=== PATIENT | female | born 1975 | race Caucasian/White ===

== ENCOUNTER 2017-01-29 07:13 | Inpatient (IN) | payer OTHER ==
[2017-01-29] VITALS (7 sets, daily range): BP systolic 101–124; BP diastolic 55–77; PULSE 70–90; RESP 16–18; TEMP 96.4–98.2; O2SAT 97–99
[~2017-01-29] VITALS: Ht 170.2 cm; Wt 98.9 kg
[2017-01-29] MEDS ORDERED: HYDROmorphone HCL PF 1 MG/ML VIAL IV PUSH ONE ×2 (07:45→09:45)
[2017-01-29] MEDS ORDERED: ONDANSETRON HCL 4 MG/2 ML VIAL IV PUSH ONE ×2 (07:45→12:00)
[2017-01-29 08:08] LABS: AUTOMATED NEUTROPHIL # 4.2 TH/MM3 (1.8-7.7); BASOPHIL % 0.4 % (0.0-2.0); EOSINOPHIL # 0.1 TH/MM3 (0-0.4); EOSINOPHIL % 1.1 % (0.0-4.0); HEMATOCRIT 37.9 % (35.0-46.0); HEMO FLAGS DIFF FINAL; LYMPH % 21.2 % (9.0-44.0); LYMPHOCYTE # 1.3 TH/MM3 (1.0-4.8); MEAN CELL VOLUME 87.5 FL (80.0-100.0); MEAN CORPUSCULAR HEMOGLOBIN 28.8 PG (27.0-34.0); MEAN CORPUSCULAR HGB CONC 32.9 % (32.0-36.0); MONO % 9.2 % (0.0-8.0); NEUT % 68.1 % (16.0-70.0); PLATELET COUNT 180 TH/MM3 (150-450); RED BLOOD COUNT 4.33 MIL/MM3 (4.00-5.30); RED CELL DISTRIBUTION WIDTH 15.2 % (11.6-17.2); WHITE BLOOD COUNT 6.2 TH/MM3 (4.0-11.0)
[2017-01-29 08:12] LABS: APTT (PATIENT) 23.9 SEC (24.3-30.1); INTERNATIONAL NORMALIZED RATIO 0.9 RATIO; PROTHROMBIN TIME - PATIENT 10.2 SEC (9.8-11.6)
--- NOTE | 2017-01-29 08:14 | PD ---
HPI Chief Complaint: Injury Time Seen by Provider: 07:43 Travel History International Travel<30 days: No Contact w/Intl Traveler<30days: No Traveled to known affect area: No History of Present Illness HPI This is a 41-year-old female presents today with right lower extremity pain after tripping and falling while walking her dog. Patient states that she was in the wet grass and down slope when she may have stepped in some dog waist and slipped. She reports pain in her middle ankle. She states that its obviously deformed. Paramedics report that there was obvious closed fracture of the mid fibula/tibia. There are no other injuries at this time. Patient is currently not taking blood thinners. She reports having a cookie this morning, no coffee and last full meal was last night. PFSH Past Medical History Tetanus Vaccination: > 5 Years ?: Not LMP: 01-14-17 Social History Alcohol Use: Yes (on occasion) Tobacco Use: No Substance Use: No Allergies-Medications (Allergen,Severity, Reaction): Coded Allergies: Quinolones (Verified Allergy, Intermediate, hives, 01/29/17) prednisone (Verified Allergy, Intermediate, hives, 01/29/17) morphine (Verified Adverse Reaction, Severe, chest pain, 01/29/17) Reported Meds & Prescriptions Reported Meds & Active Scripts Active No Active Prescriptions or Reported Medications Review of Systems HENT: No: Headaches, Neck Pain Cardiovascular: No: Chest Pain or Discomfort, Palpitations Respiratory: No: Cough, Shortness of Breath Gastrointestinal: No: Nausea, Vomiting, Abdominal Pain Musculoskeletal: Positive: Pain, No: Weakness, Edema Neurologic: No: Weakness, Paresthesia, Sensory Disturbance Physical Exam Narrative GENERAL: Well-nourished, well-developed patient, in no acute respiratory distress. SKIN: Focused skin assessment warm/dry. HEAD: Normocephalic. EYES: No scleral icterus. No injection or drainage. NECK: Supple, trachea midline. No JVD or lymphadenopathy. CARDIOVASCULAR: Regular rate and rhythm without murmurs, gallops, or rubs. RESPIRATORY: Breath sounds equal bilaterally. No accessory muscle use. GASTROINTESTINAL: Abdomen soft, non-tender, nondistended. MUSCULOSKELETAL: Patient has obvious deformity to her right middle tib-fib. Ankle appears intact. Cap refills less than 3 seconds. She was able really her toes without difficulty. She had normal sensation across the dorsum of her foot. No other deformities appreciated. NEUROLOGICAL: Awake and alert. Cranial nerves II through XII intact. Motor grossly within normal limits. Five out of 5 muscle strength in all muscle groups. Normal speech. Data Data Last Documented VS Vital Signs Date Time Temp Pulse Resp B/P (MAP) Pulse Ox O2 Delivery O2 Flow Rate FiO2 01/29/17 10:07 17 01/29/17 09:27 97.8 84 101/68 (79) 99 Room Air Orders Orders Complete Blood Count With Diff (01/29/17 07:43) Basic Metabolic Panel (Bmp) (01/29/17 07:43) Prothrombin Time / Inr (Pt) (01/29/17 07:43) Act Partial Throm Time (Ptt) (01/29/17 07:43) Iv Access Insert/Monitor (01/29/17 07:43) Ecg Monitoring (01/29/17 07:43) Oximetry (01/29/17 07:43) Ondansetron Inj (Zofran Inj) (01/29/17 07:45) Hydromorphone Pf Inj (Dilaudid Pf Inj) (01/29/17 07:45) Ankle, Limited (Ap&Lat) (01/29/17 07:52) Tibia/Fibula (Ap/Lat) (01/29/17 07:52) Hydromorphone Pf Inj (Dilaudid Pf Inj) (01/29/17 09:45) Labs Laboratory Tests Test 01/29/17 07:50 White Blood Count 6.2 TH/MM3 Red Blood Count 4.33 MIL/MM3 Hemoglobin 12.5 GM/DL Hematocrit 37.9 % Mean Corpuscular Volume 87.5 FL Mean Corpuscular Hemoglobin 28.8 PG Mean Corpuscular Hemoglobin Concent 32.9 % Red Cell Distribution Width 15.2 % Platelet Count 180 TH/MM3 Mean Platelet Volume 9.5 FL Neutrophils (%) (Auto) 68.1 % Lymphocytes (%) (Auto) 21.2 % Monocytes (%) (Auto) 9.2 % Eosinophils (%) (Auto) 1.1 % Basophils (%) (Auto) 0.4 % Neutrophils # (Auto) 4.2 TH/MM3 Lymphocytes # (Auto) 1.3 TH/MM3 Monocytes # (Auto) 0.6 TH/MM3 Eosinophils # (Auto) 0.1 TH/MM3 Basophils # (Auto) 0.0 TH/MM3 CBC Comment DIFF FINAL Differential Comment Prothrombin Time 10.2 SEC Prothromb Time International Ratio 0.9 RATIO Activated Partial Thromboplast Time 23.9 SEC Blood Urea Nitrogen 17 MG/DL Creatinine 0.53 MG/DL Random Glucose 83 MG/DL Calcium Level 7.7 MG/DL Sodium Level 143 MEQ/L Potassium Level 3.8 MEQ/L Chloride Level 110 MEQ/L Carbon Dioxide Level 26.5 MEQ/L Anion Gap 7 MEQ/L Estimat Glomerular Filtration Rate 127 ML/MIN MDM Medical Decision Making Medical Screen Exam Complete: Yes Emergency Medical Condition: Yes Differential Diagnosis Right tib-fib fracture versus ankle fracture versus contusion Narrative Course Diagnoses a 41-year-old female presents with right ankle pain after slip and fall while walking her dog. The patient was walking her dog when she stepped in some dog feces and slipped and twisted her ankle. Patient has a bimalleolar fracture. She last had a cookie this morning. She has not had a full meal since last night. She has no other medical problems. She's been medicated twice with dilated. The case was discussed with Dr. Morris tapia, on-call orthopedic surgeon, who will try to arrange take her to the operating room this afternoon. She has requested we admit to the medicine service and make nothing by mouth. There is a call out to the [facility] hospitalist service for admission. Diagnosis Primary Impression: Bimalleolar fracture of right ankle Admitting Information Admitting Physician Requests: Admit Scripts No Active Prescriptions or Reported Meds Samy England MD Jan 29, 2017 08:14
[2017-01-29 08:22] LABS: BICARBONATE 26.5 MEQ/L (21.0-32.0); POTASSIUM 3.8 MEQ/L (3.5-5.1)
--- NOTE | 2017-01-29 09:07 | RADRPT ---
EXAM DATE/TIME: 01/29/2017 08:33 [facility] COMPARISON: No previous studies available for comparison. INDICATIONS : Right tibia/fibula pain after falling. MEDICAL HISTORY : None. SURGICAL HISTORY : None. ENCOUNTER: Initial ACUITY: 1 day PAIN SCORE: 9/10 LOCATION: Right tibia/fibula FINDINGS: Two view examination of the right tibia demonstrates bimalleolar fracture. Medial malleolar injury ex tends into the joint space. Fibular fracture is through the distal diaphysis. CONCLUSION: Bimalleolar fracture. Arpan Frost MD on January 29, 2017 at 9:04 Board Certified Radiologist. This report was verified electronically.
--- NOTE | 2017-01-29 09:09 | RADRPT ---
EXAM DATE/TIME: 01/29/2017 08:34 [facility] COMPARISON: No previous studies available for comparison. INDICATIONS : Right ankle pain and swelling after falling. MEDICAL HISTORY : None. SURGICAL HISTORY : None. ENCOUNTER: Initial ACUITY: 1 day PAIN SCORE: 9/10 LOCATION: Right ankle FINDINGS: Two view examination was performed of the right ankle. Bimalleolar fracture with medial malleolar inj ury extending into the joint space. Fracture through the distal fibula is through the distal diaphysi s. No mortise view provided there may be some disruption of the ankle mortise based on the appearance of the AP projection. CONCLUSION: Bimalleolar fracture with regional soft tissue swelling. Arpan Frost MD on January 29, 2017 at 9:06 Board Certified Radiologist. This report was verified electronically.
[2017-01-29] MEDS ORDERED: SODIUM CHLORIDE 0.9% FLUSH 10 ML FLUSH IV FLUSH PRN ×2 (10:30→22:30)
[2017-01-29] MEDS ORDERED: ONDANSETRON HCL 4 MG/2 ML VIAL IV PUSH PRN (10:30)
[2017-01-29] MEDS ORDERED: diphenhydrAMINE HCL 25 MG CAP PO PRN (10:30)
[2017-01-29] MEDS ORDERED: MAGNESIUM HYDROXIDE SUSP 30 ML CUP PO PRN ×2 (10:30→22:30)
[2017-01-29] MEDS ORDERED: diphenhydrAMINE HCL 50 MG/ML VIAL IV PUSH PRN (10:30)
[2017-01-29] MEDS ORDERED: ACETAMINOPHEN/HYDROcodone 325 MG/5 MG TAB PO PRN (10:30)
[2017-01-29] MEDS ORDERED: NALOXONE HCL 0.4 MG/ML AMP IV PUSH PRN (10:30)
--- NOTE | 2017-01-29 11:21 | HHI.HP ---
[facility] Unknown Admission Diagnosis right bimalleolor ankle fracture Diagnoses: Chief Complaint: Right ankle pain. Travel History International Travel<30 Days: No Contact w/Intl Traveler <30 Da: No Traveled to Known Affected Are: No History of Present Illness Written by Sukumar Sánchez PA-C acting as scribe for Dr. Clarissa Alanis on 01/29/17 at 11:09. Mrs. Zapata 41 years old, with no significant medical history. Mrs. Zapata was walking her dog this morning and had a slip and fall event resulting in her landing heavily on her right lower extremity pain was immediate. She was not able to walk on it. EMS was called and she was subsequently transferred to [facility] for evaluation management of her injury. Imaging studies indicated the presence of a right bimalleolar fracture of the ankle. ED team placed her extremity in a splint. Dr. Cox with orthopedics was consult and patient is possibly going to the operating room later this afternoon. As such, patient is nothing by mouth. At time of interview,Mrs. Zapata was encountered laying a bed watching TV. She reported having significant right lower leg pain rating it 7 out of 10. She stated that pain medication given to her in the ED was effective for proximally 20-30 minutes before the pain returned. Patient denied striking her head or loss of consciousness. She denied fever, cough, shortness of breath, NVD, abdominal/chest pain. She reported that she was able to move her toes on command as well as tinea to have sensation on the bottom of her foot. Review of Systems Constitutional: DENIES: Fatigue, Fever, Chills, Dizziness Endocrine: DENIES: Abnorml menstrual pattern (LMP was 01/14/17) Eyes: DENIES: Blurred vision Ears, nose, mouth, throat: DENIES: Throat pain Cardiovascular: DENIES: Chest pain Gastrointestinal: DENIES: Abdominal pain Genitourinary: DENIES: Dysuria Musculoskeletal: COMPLAINS OF: Joint pain Integumentary: DENIES: Breast masses Immunologic/allergic: DENIES: Eczema Neurologic: DENIES: Abnormal gait Psychiatric: DENIES: Anxiety, Confusion Past Family Social History Past Medical History Patient denied any significant medical history. Dated that her maternal side of the family is significant for breast cancer and is prophylactically taking tamoxifen. Past Surgical History 1 "Knee scrape" of right knee Cholecystectomy Patient stated she has no difficulties with anesthesia. Reported Medications Tamoxifen dosage not reported. Allergies: Coded Allergies: Quinolones (Verified Allergy, Intermediate, hives, 01/29/17) prednisone (Verified Allergy, Intermediate, hives, 01/29/17) morphine (Verified Adverse Reaction, Severe, chest pain, 01/29/17) Active Ordered Medications Current Medications Medications (Trade) Dose Ordered Sig/Vaishnavi Route Start Time Stop Time Status Last Admin Sodium Chloride 1,000 ml @ 100 mls/hr Q10H IV 01/29/17 10:23 UNV (NS Flush) 2 ml UNSCH PRN IV FLUSH 01/29/17 10:30 UNV (NS Flush) 2 ml BID IV FLUSH 01/29/17 21:00 UNV (Cecil 5-325 Mg) 1 tab Q4H PRN PO 01/29/17 10:30 UNV (Cecil 5-325 Mg) 2 tab Q4H PRN PO 01/29/17 10:30 UNV (Dilaudid Pf Inj) 1 mg Q3HR PRN IV PUSH 01/29/17 10:30 UNV (Zofran Inj) 4 mg Q6H PRN IV PUSH 01/29/17 10:30 UNV (Colace) 100 mg BID PO 01/29/17 21:00 UNV (Milk Of Magnesia Liq) 30 ml Q6H PRN PO 01/29/17 10:30 UNV (Benadryl Inj) 25 mg Q4H PRN IV PUSH 01/29/17 10:30 UNV (Benadryl) 25 mg Q4H PRN PO 01/29/17 10:30 UNV (Narcan Inj) 0.4 mg UNSCH PRN IV PUSH 01/29/17 10:30 UNV Family History As above patient reported strong maternal family history of breast cancer. She'll have identified mother, aunt, cousins, maternal grandmother as all having breast cancer. No other family history was identified. Social History Patient stated she may have 2 glasses of wine per week. Illicit/recreational drug use was denied. Patient denied nicotine usage. Physical Exam Vital Signs Vital Signs Date Time Temp Pulse Resp B/P (MAP) Pulse Ox O2 Delivery O2 Flow Rate FiO2 01/29/17 10:07 17 01/29/17 09:27 97.8 84 17 101/68 (79) 99 Room Air 01/29/17 08:19 16 01/29/17 07:45 16 98 Room Air 01/29/17 07:33 85 18 98 Room Air 01/29/17 07:32 98.2 90 18 124/72 (89) 97 Room Air Physical Exam GENERAL: This is a well-nourished, well-developed patient, in no apparent distress. SKIN: No rashes, ecchymoses or lesions. Cool and dry. HEAD: Atraumatic. Normocephalic. EYES: Pupils equal round and reactive. Extraocular motions intact. No scleral icterus. No injection or drainage. ENT: Nose without bleeding or purulent drainage. Airway patent. NECK: Trachea midline. No lymphadenopathy. Supple and nontender. CARDIOVASCULAR: Regular rate and rhythm without murmurs, gallops, or rubs. RESPIRATORY: Clear to auscultation. Breath sounds equal bilaterally. No wheezes , rales, or rhonchi. GASTROINTESTINAL: Abdomen soft, non-tender, nondistended. No hepato- splenomegaly or guarding. MUSCULOSKELETAL: Extremities without clubbing, cyanosis, or edema. Right lower extremity in splint wrapped with Kerlix. NEUROLOGICAL: Awake and alert. Cranial nerves II through XII intact. Motor and sensory grossly within normal limits. Five out of 5 muscle strength in all muscle groups except right lower extremity which was not evaluated. Speech was clear and fluent. Laboratory Laboratory Tests Test 01/29/17 07:50 White Blood Count 6.2 Red Blood Count 4.33 Hemoglobin 12.5 Hematocrit 37.9 Mean Corpuscular Volume 87.5 Mean Corpuscular Hemoglobin 28.8 Mean Corpuscular Hemoglobin Concent 32.9 Red Cell Distribution Width 15.2 Platelet Count 180 Mean Platelet Volume 9.5 Neutrophils (%) (Auto) 68.1 Lymphocytes (%) (Auto) 21.2 Monocytes (%) (Auto) 9.2 Eosinophils (%) (Auto) 1.1 Basophils (%) (Auto) 0.4 Neutrophils # (Auto) 4.2 Lymphocytes # (Auto) 1.3 Monocytes # (Auto) 0.6 Eosinophils # (Auto) 0.1 Basophils # (Auto) 0.0 CBC Comment DIFF FINAL Differential Comment Prothrombin Time 10.2 Prothromb Time International Ratio 0.9 Activated Partial Thromboplast Time 23.9 Blood Urea Nitrogen 17 Creatinine 0.53 Random Glucose 83 Calcium Level 7.7 Sodium Level 143 Potassium Level 3.8 Chloride Level 110 Carbon Dioxide Level 26.5 Anion Gap 7 Estimat Glomerular Filtration Rate 127 Result Diagram: 01/29/1774901/29/17749 Imaging Last Impressions Tibia/Fibula X-Ray 01/29/17751 Signed Impressions: Service Date/Time: Sunday, January 29, 2017 08:33 - CONCLUSION: Bimalleolar fracture. Arpan Frost MD Ankle X-Ray 01/29/17751 Signed Impressions: Service Date/Time: Sunday, January 29, 2017 08:34 - CONCLUSION: Bimalleolar fracture with regional soft tissue swelling. Arpan Frost MD Caprini VTE Risk Assessment Caprini VTE Risk Assessment: Mod/High Risk (score >= 2) Caprini Risk Assessment Model Point Value = 1 Point Value = 2 Point Value = 3 Point Value = 5 Age 41-60 Minor surgery BMI > 25 kg/m2 Swollen legs Varicose veins or History of unexplained or recurrent spontaneous Oral contraceptives or hormone replacement Sepsis (< 1 month) Serious lung disease, including pneumonia (< 1 month) Abnormal pulmonary function Acute myocardial infarction Congestive heart failure (< 1 month) History of inflammatory bowel disease Medical patient at bed rest Age 61-74 Arthroscopic surgery Major open surgery (> 45 min) Laparoscopic surgery (> 45 min) Malignancy Confined to bed (> 72 hours) Immobilizing plaster cast Central venous access Age >= 75 History of VTE Family history of VTE Factor V Leiden Prothrombin [id number] Lupus anticoagulant Anticardiolipin antibodies Elevated serum homocysteine Heparin-induced thrombocytopenia Other congenital or acquired thrombophilia Stroke (< 1 month) Elective arthroplasty Hip, pelvis, or leg fracture Acute spinal cord injury (< 1 month) Prophylaxis Regimen Total Risk Factor Score Risk Level Prophylaxis Regimen 0-1 Low Early ambulation 2 Moderate Order ONE of the following: *Sequential Compression Device (SCD) *Heparin 5000 units SQ BID 3-4 Higher Order ONE of the following medications: *Heparin 5000 units SQ TID *Enoxaparin/Lovenox 40 mg SQ daily (WT < 150 kg, CrCl > 30 mL/min) *Enoxaparin/Lovenox 30 mg SQ daily (WT < 150 kg, CrCl > 10-29 mL/min) *Enoxaparin/Lovenox 30 mg SQ BID (WT < 150 kg, CrCl > 30 mL/min) AND/OR *Sequential Compression Device (SCD) 5 or more Highest Order ONE of the following medications: *Heparin 5000 units SQ TID (Preferred with Epidurals) *Enoxaparin/Lovenox 40 mg SQ daily (WT < 150 kg, CrCl > 30 mL/min) *Enoxaparin/Lovenox 30 mg SQ daily (WT < 150 kg, CrCl > 10-29 mL/min) *Enoxaparin/Lovenox 30 mg SQ BID (WT < 150 kg, CrCl > 30 mL/min) AND *Sequential Compression Device (SCD) Assessment and Plan Problem List: (1) Bimalleolar fracture of right ankle ICD Code: S82.841A - Displaced bimalleolar fracture of right lower leg, initial encounter for closed fracture Status: Acute Assessment and Plan Mrs. Zapata 41 years old, with no significant medical history. Bimalleolar fracture of the right ankle -Admitted to inpatient service -Dr. Cox with orthopedics in consult; patient likely to go to OR this afternoon for repair. -Pain management: Cecil 5-325 pain 1-5 q 4 hr prn, Cecil 10-650 for pain 6- 10 q 4 hr prn, Dilaudid 1 mg for breakthrough pain q 3 hr prn -OT/PT services DVT prophylaxis -With patient history of tamoxifen use chemoprophylaxis is warranted. To be initiated when cleared by surgery. This note was transcribed by teresa [Sukumar Sánchez]. I, Dr. Junaid Alanis personally performed the history, physical exam, and medical decision making; and confirmed the accuracy of the information in the transcribed note. Authenticated by Dr. Junaid Alanis on 01/29/17 at 1115. Code Status Full code Discussed Condition With The patient and ED staff. Physician Certification 2 Midnight Certification Type: Admission for Inpatient Services Order for Inpatient Services The services are ordered in accordance with Medicare regulations or non- Medicare payer requirements, as applicable. In the case of services not specified as inpatient-only, they are appropriately provided as inpatient services in accordance with the 2-midnight benchmark. Estimated LOS (days): 3 Three days is the estimated time the patient will need to remain in the hospital , assuming treatment plan goals are met and no additional complications. Post-Hospital Plan: Home Problem Qualifiers (1) Bimalleolar fracture of right ankle: Qualified Codes: S82.841A - Displaced bimalleolar fracture of right lower leg, initial encounter for closed fracture Sukumar Snáchez Jr. Jan 29, 2017 11:21 Junaid Alanis MD Jan 29, 2017 16:56
[2017-01-29] MEDS: SODIUM CHLOR 0.9% 1000 ML INJ 1,000 ML IV SCH ×2 (11:46→22:00)
[2017-01-29] MEDS: HYDROmorphone HCL PF 1 MG/ML VIAL IV PUSH PRN ×2 (11:46→14:55)
[2017-01-29] MEDS ORDERED: ROCURONIUM INJ 50 MG/5 ML SYRINGE IV PUSH ONE (12:00)
[2017-01-29] MEDS ORDERED: PROPOFOL 200 MG/20 ML AMP IV ONE (12:00)
[2017-01-29] MEDS ORDERED: LIDOCAINE HCL 1% PF 5 ML AMPULE OTHER ONE (12:00)
[2017-01-29] MEDS ORDERED: PHENYLEPH/NS 1000 MCG/10 ML SYR IV ONE (12:00)
[2017-01-29] MEDS ORDERED: GLYCOPYRROLATE 1 MG/5 ML SYRINGE IV PUSH ONE (12:00)
[2017-01-29] MEDS ORDERED: NEOSTIGMINE 3 MG/3 ML SYR IV ONE (12:00)
--- NOTE | 2017-01-29 13:57 | PD.CONS ---
HPI Service Orthopedic Surgeons Consult Requested By Reason for Consult right ankle fracture Primary Care Physician Unknown Admission Diagnosis right bimalleolar ankle fracture Diagnoses: (1) Bimalleolar fracture of right ankle Diagnosis: Principal Chief Complaint: right ankle fracture History of Present Illness 41-year-old female who presents with right ankle pain after a trip and fall while walking her dog. Patient states she slipped on an uneven surface and fell. She denies any head injury. She denies any other extremity pain. She denies any numbness or tingling. She denies any chest pain, shortness of breath, abdominal pain, nausea, vomiting. Review of Systems Constitutional: DENIES: Fever Endocrine: COMPLAINS OF: Polyuria Eyes: DENIES: Blurred vision Ears, nose, mouth, throat: DENIES: Running Nose Respiratory: DENIES: Cough Cardiovascular: DENIES: Chest pain Gastrointestinal: DENIES: Abdominal pain Genitourinary: DENIES: Urinary frequency Musculoskeletal: COMPLAINS OF: Joint pain, Joint Swelling Integumentary: DENIES: Rash Hematologic/lymphatic: COMPLAINS OF: Bruising Immunologic/allergic: DENIES: Eczema Neurologic: DENIES: Headache Psychiatric: DENIES: Anxiety Past Family Social History Past Medical History Patient denied any significant medical history. Dated that her maternal side of the family is significant for breast cancer and is prophylactically taking tamoxifen. Past Surgical History 1 "Knee scrape" of right knee Cholecystectomy Patient stated she has no difficulties with anesthesia. Allergies: Coded Allergies: Quinolones (Verified Allergy, Intermediate, hives, 01/29/17) prednisone (Verified Allergy, Intermediate, hives, 01/29/17) morphine (Verified Adverse Reaction, Severe, chest pain, 01/29/17) Active Ordered Medications Current Medications Medications (Trade) Dose Ordered Sig/Vaishnavi Route Start Time Stop Time Status Last Admin Sodium Chloride 1,000 ml @ 100 mls/hr Q10H IV 01/29/17 12:00 01/29/17 11:46 (NS Flush) 2 ml UNSCH PRN IV FLUSH 01/29/17 10:30 (NS Flush) 2 ml BID IV FLUSH 01/29/17 21:00 (Lyman 5-325 Mg) 1 tab Q4H PRN PO 01/29/17 10:30 01/29/17 11:46 (Lyman 5-325 Mg) 2 tab Q4H PRN PO 01/29/17 10:30 (Dilaudid Pf Inj) 1 mg Q3HR PRN IV PUSH 01/29/17 10:30 01/29/17 11:46 (Zofran Inj) 4 mg Q6H PRN IV PUSH 01/29/17 10:30 (Colace) 100 mg BID PO 01/29/17 21:00 (Milk Of Magnesia Liq) 30 ml Q6H PRN PO 01/29/17 10:30 (Benadryl Inj) 25 mg Q4H PRN IV PUSH 01/29/17 10:30 (Benadryl) 25 mg Q4H PRN PO 01/29/17 10:30 (Narcan Inj) 0.4 mg UNSCH PRN IV PUSH 01/29/17 10:30 Reported Meds & Active Scripts Active No Active Prescriptions or Reported Medications Family History As above patient reported strong maternal family history of breast cancer. She'll have identified mother, aunt, cousins, maternal grandmother as all having breast cancer. No other family history was identified. Social History Patient stated she may have 2 glasses of wine per week. Illicit/recreational drug use was denied. Patient denied nicotine usage. Physical Exam Vital Signs Vital Signs Date Time Temp Pulse Resp B/P (MAP) Pulse Ox O2 Delivery O2 Flow Rate FiO2 01/29/17 12:16 17 01/29/17 12:16 17 01/29/17 11:49 97.8 76 17 108/67 (81) 99 Room Air 01/29/17 10:07 17 01/29/17 09:27 97.8 84 17 101/68 (79) 99 Room Air 01/29/17 08:19 16 01/29/17 07:45 16 98 Room Air 01/29/17 07:33 85 18 98 Room Air 01/29/17 07:32 98.2 90 18 124/72 (89) 97 Room Air Physical Exam The patient appeared well nourished and normally developed. Vital signs as documented. Head exam is unremarkable. No scleral icterus noted. Neck is without jugular venous distension. Nonlabored respirations. Regular rate. Abdomen nontender. no lymphadenopathy appreciated bilateral femoral. Right lower extremity: With tenderness palpation and swelling about the ankle. Patient is neurovascular intact and able to demonstrate EHL and FHL. Patient has no tenderness about the knee and a negative logroll. Brisk cap refill Bilateral upper extremities and left lower extremity: Without tenderness to palpation, erythema, or ecchymosis. Full active range of motion and strength throughout. Sensation intact. Radial and dorsalis pedis pulses palpable. Laboratory Laboratory Tests Test 01/29/17 07:50 White Blood Count 6.2 Red Blood Count 4.33 Hemoglobin 12.5 Hematocrit 37.9 Mean Corpuscular Volume 87.5 Mean Corpuscular Hemoglobin 28.8 Mean Corpuscular Hemoglobin Concent 32.9 Red Cell Distribution Width 15.2 Platelet Count 180 Mean Platelet Volume 9.5 Neutrophils (%) (Auto) 68.1 Lymphocytes (%) (Auto) 21.2 Monocytes (%) (Auto) 9.2 Eosinophils (%) (Auto) 1.1 Basophils (%) (Auto) 0.4 Neutrophils # (Auto) 4.2 Lymphocytes # (Auto) 1.3 Monocytes # (Auto) 0.6 Eosinophils # (Auto) 0.1 Basophils # (Auto) 0.0 CBC Comment DIFF FINAL Differential Comment Prothrombin Time 10.2 Prothromb Time International Ratio 0.9 Activated Partial Thromboplast Time 23.9 Blood Urea Nitrogen 17 Creatinine 0.53 Random Glucose 83 Calcium Level 7.7 Sodium Level 143 Potassium Level 3.8 Chloride Level 110 Carbon Dioxide Level 26.5 Anion Gap 7 Estimat Glomerular Filtration Rate 127 Result Diagram: 01/29/17 0750 01/29/17 0750 Imaging Right ankle radiographs demonstrate a bimalleolar displaced ankle fracture. Assessment & Plan Problem List: (1) Bimalleolar fracture of right ankle ICD Codes: S82.841A - Displaced bimalleolar fracture of right lower leg, initial encounter for closed fracture Status: Acute Qualifiers: Qualified Codes: S82.841A - Displaced bimalleolar fracture of right lower leg, initial encounter for closed fracture Assessment and Plan 41-year-old female with displaced closed right bimalleolar ankle fracture. Risks, benefits, alternatives discussed with the patient regarding nonoperative versus operative management. I discussed with the patient that given the displacement on imaging, her ankle is considered to be unstable and therefore we would recommend open reduction internal fixation. Risks include but are not limited to, infection, nonunion or malunion, hardware failure, chronic joint pain, arthritis, stiffness, possible need for further surgery. Patient voiced understanding of these and wishes to proceed with surgery. I scheduled the patient for surgery later this afternoon or evening. However I did discuss with the patient that should time not be available in the operating room, she may have surgery tomorrow morning. I did discuss postoperatively, she could possibly go home the same day provided her pain is well-controlled. She likely will be nonweightbearing to the right lower extremity for several weeks. Patient should remain nothing by mouth at this time. Elvie Malagon MD Jan 29, 2017 13:57
[2017-01-29] MEDS ORDERED: ACETAMINOPHEN 1000 MG/100 ML 0 ML IV ONE (16:43)
[2017-01-29] MEDS ORDERED: HYDROmorphone HCL PF 2 MG/ML VIAL ONE (16:43)
[2017-01-29] MEDS: ACETAMINOPHEN/HYDROcodone 325 MG/5 MG TAB PO PRN (16:52)
[2017-01-29] MEDS ORDERED: LACTATED RINGER'S 1000 ML IV PRN (20:00)
[2017-01-29] MEDS ORDERED: METOPROLOL TARTRATE 25 MG TAB PO PRN (20:00)
[2017-01-29] MEDS ORDERED: SODIUM CHLORID 0.9% 500 ML IV PRN (20:00)
[2017-01-29] MEDS ORDERED: CHLORHEXIDINE GLUCONATE 2 % 1 PACK (2 CLOTHS) TOPICAL PRN (20:00)
[2017-01-29] MEDS ORDERED: POVIDONE IODINE 5% (ANTISEPSIS KIT) 4 APPLICATIONS EACH NARE PRN (20:00)
[2017-01-29] MEDS ORDERED: INSULIN HUMAN REGULAR 1,000 UNITS/10 ML VIAL SQ PRN (20:00)
[2017-01-29] MEDS ORDERED: ceFAZolin 2 GM PREMIX 50 ML ONE (20:19)
[2017-01-29] MEDS ORDERED: GENTAMICIN SULFATE 80 MG/2 ML VIAL ONE (20:19)
[2017-01-29] MEDS ORDERED: BUPIVACAINE/EPINEPHRINE 0.25% 50 ML VIAL ONE (20:19)
[2017-01-29] MEDS ORDERED: SODIUM CHLORIDE 0.9% FLUSH 10 ML FLUSH IV FLUSH SCH (21:00)
[2017-01-29] MEDS ORDERED: DOCUSATE SODIUM 100 MG CAP PO SCH (21:00)
--- NOTE | 2017-01-29 22:28 | HHI.PR ---
Immediate Post Op Note Procedure Date: Jan 29, 2017 Pre Op Diagnosis: Closed right bimalleolar ankle fracture Post Op Diagnosis: as above Surgeon: Elvie Malgaon Timber Skidder(s): or assistant Procedure: ORIF R bimalleolar ankle fracture Complications: none Specimen(s) removed: none Estimated blood loss: minimal Anesthesia: General Drains: None Patient to: PACU Patient Condition: Good Implant/Devices: SEE IMPLANT LOG (if applicable) Date/Time of Procedure: SEE SURGICAL CARE RECORD Elvie Malagon MD Jan 29, 2017 22:28
[2017-01-29] MEDS ORDERED: BISACODYL 10 MG SUPP RECTAL PRN (22:30)
[2017-01-29] MEDS ORDERED: SENNOSIDES 8.6 MG TAB PO PRN (22:30)
[2017-01-29] MEDS ORDERED: Post-op Orders (for Pharmacy) MISC XX ONE (22:30)
[2017-01-29] MEDS ORDERED: LACTULOSE SYRUP 20 GM/30 ML CUP PO PRN (22:30)
[2017-01-29] MEDS ORDERED: ACETAMINOPHEN 1000 MG/100 ML 100 ML IV ONE (22:51)
--- NOTE | 2017-01-29 23:00 | RADRPT ---
EXAM DATE/TIME: 01/29/2017 21:57 [facility] COMPARISON: ANKLE RIGHT LIMITED (AP&LAT), January 29, 2017, 8:34. INDICATIONS : Ankle fracture- ORIF. MEDICAL HISTORY : None. SURGICAL HISTORY : None. ENCOUNTER: Subsequent ACUITY: 1 day PAIN SCORE: Non-responsive. LOCATION: Right Ankle. FINDINGS: 5 magnified C-arm spot views are centered over the ankle joint and labeled right. An orthopedic plate is seen involving the lateral cortex of the distal fibular metadiaphysis with multiple anchoring scr ews. 2 anchoring screws traverse the medial malleolus of the distal tibia. Good alignment seen at bot h locations. CONCLUSION: Limited images as detailed above. Reno James Jr., MD on January 29, 2017 at 22:58 Board Certified Radiologist. This report was verified electronically.
[2017-01-29] MEDS ORDERED: MEPERIDINE HCL 25 MG/ML VIAL ONE (23:01)
[2017-01-29] MEDS ORDERED: DO NOT ADM ANY ANTICOAGULANT DRUGS PRN (23:15)
[2017-01-30 00:13] VITALS: BP 114/63; PULSE 79; RESP 17; TEMP 97.8; O2SAT 97
[2017-01-30] MEDS: HYDROmorphone HCL PF 1 MG/ML VIAL IV PUSH PRN ×4 (00:15→11:14)
[2017-01-30] MEDS: ACETAMINOPHEN/HYDROcodone 325 MG/5 MG TAB PO PRN ×2 (01:27→05:16)
[2017-01-30 04:00] VITALS: BP 121/62; PULSE 89; RESP 18; TEMP 97; O2SAT 95
[2017-01-30 06:51] LABS: AUTOMATED NEUTROPHIL # 5.6 TH/MM3 (1.8-7.7); BASOPHIL % 0.2 % (0.0-2.0); EOSINOPHIL % 0.3 % (0.0-4.0); HEMATOCRIT 34.9 % (35.0-46.0); HEMO FLAGS DIFF FINAL; LYMPH % 14.3 % (9.0-44.0); MEAN CELL VOLUME 88.1 FL (80.0-100.0); MEAN CORPUSCULAR HEMOGLOBIN 28.5 PG (27.0-34.0); MEAN CORPUSCULAR HGB CONC 32.4 % (32.0-36.0); MONO % 8.2 % (0.0-8.0); PLATELET COUNT 166 TH/MM3 (150-450); RED BLOOD COUNT 3.97 MIL/MM3 (4.00-5.30); RED CELL DISTRIBUTION WIDTH 15.4 % (11.6-17.2); WHITE BLOOD COUNT 7.3 TH/MM3 (4.0-11.0)
--- NOTE | 2017-01-30 06:52 | PD.ORT.PN ---
Subjective Post Op Day #: 1 Subjective Remarks Reports R ankle pain, otherwise doing well. Denies CP, SOB, AP, N/V Would like to go home today. Objective Vitals Vital Signs Date Time Temp Pulse Resp B/P (MAP) Pulse Ox O2 Delivery O2 Flow Rate FiO2 01/30/17 04:00 97.0 89 18 121/62 (81) 95 01/30/17 00:13 97.8 79 17 114/63 (80) 97 01/29/17 23:45 64 9 99/60 (73) 98 Room Air 01/29/17 23:30 63 10 105/60 (75) 100 Nasal Cannula 4 01/29/17 23:15 63 11 115/65 (82) 100 Nasal Cannula 4 01/29/17 23:00 63 9 119/68 (85) 100 Nasal Cannula 4 01/29/17 22:45 98.0 64 11 123/77 (92) 100 Nasal Cannula 4 01/29/17 19:50 97.1 70 16 105/66 (79) 98 01/29/17 17:58 16 01/29/17 15:35 16 01/29/17 14:55 96.4 83 16 102/55 (71) 98 01/29/17 14:10 97.8 76 17 118/77 (91) 99 01/29/17 12:16 17 01/29/17 11:49 97.8 76 17 108/67 (81) 99 Room Air 01/29/17 10:07 17 01/29/17 09:27 97.8 84 17 101/68 (79) 99 Room Air 01/29/17 08:19 16 01/29/17 07:45 16 98 Room Air 01/29/17 07:33 85 18 98 Room Air 01/29/17 07:32 98.2 90 18 124/72 (89) 97 Room Air I/O 01/29/17 01/29/17 01/29/17 01/30/17 01/30/17 01/30/17 07:00 15:00 23:00 07:00 15:00 23:00 Intake Total 750 ml 720 ml Output Total 50 ml Balance 700 ml 720 ml Intake Oral 0 ml 720 ml Other 750 ml Output Estimated Blood Loss 50 ml # Voids 1 1 Result Diagram: 01/29/17 0750 01/29/17 0750 Other Results Laboratory Tests Test 01/29/17 07:50 Prothromb Time International Ratio 0.9 RATIO Prothrombin Time 10.2 SEC (9.8-11.6) Imaging Last 24 hours Impressions Tibia/Fibula X-Ray 01/29/17751 Signed Impressions: Service Date/Time: Sunday, January 29, 2017 08:33 - CONCLUSION: Bimalleolar fracture. Arpan Frost MD Ankle X-Ray 01/29/17751 Signed Impressions: Service Date/Time: Sunday, January 29, 2017 08:34 - CONCLUSION: Bimalleolar fracture with regional soft tissue swelling. Arpan Frost MD Objective Remarks Awake, alert, NAD R ankle in splint. +EHL and FHL. Sensation intact over toes distally. BCR Assessment & Plan Ortho Post Op Day #: 1 Problem List: (1) Bimalleolar fracture of right ankle ICD Codes: S82.841A - Displaced bimalleolar fracture of right lower leg, initial encounter for closed fracture Status: Acute Qualifiers: Qualified Codes: S82.841A - Displaced bimalleolar fracture of right lower leg, initial encounter for closed fracture Assessment and Plan 41-year-old female with displaced closed right bimalleolar ankle fracture, POD#1 1. Splint to RLE. Continue NWB RLE. Elevate and ice 2. PT for mobilization 3. C/o pain this morning. Would like to try percocet in place of norco. 4. Ok for discharge from ortho standpoint. Follow-up in 2 weeks. Elvie Malagon MD Jan 30, 2017 06:52
[2017-01-30] MEDS ORDERED: OXYC-255 PO (06:58)
[2017-01-30] MEDS ORDERED: WALKER/ADULT/FO1 MIS (06:58)
[2017-01-30] MEDS ORDERED: oxyCODONE/ACETAMINOPHEN 5 MG/325 MG TAB PO PRN (07:00)
[2017-01-30 08:00] VITALS: BP 100/68; PULSE 73; RESP 20; TEMP 95.8; O2SAT 98
[2017-01-30] MEDS: SODIUM CHLOR 0.9% 1000 ML INJ 1,000 ML IV SCH (08:00)
[2017-01-30] MEDS: oxyCODONE/ACETAMINOPHEN 10 MG/325 MG TAB PO PRN ×2 (08:58→13:04)
[2017-01-30] MEDS ORDERED: DOCUSATE SODIUM 50 MG/SENNA 8.6 MG TAB PO SCH (09:00)
[2017-01-30] MEDS ORDERED: SODIUM CHLORIDE 0.9% FLUSH 10 ML FLUSH IV FLUSH SCH (09:00)
[2017-01-30 12:00] VITALS: BP 117/74; PULSE 78; RESP 17; TEMP 97.3; O2SAT 98
--- NOTE | 2017-01-30 12:12 | HHI.PR ---
Subjective Remarks Pt has some pain but feels comfortable going home w current pain med regimen. no nausea or vomiting, purchased a scooter for her to move around in home. PT hasn't yet seen pt. She would like to go home today Objective Vitals Vital Signs Date Time Temp Pulse Resp B/P (MAP) Pulse Ox O2 Delivery O2 Flow Rate FiO2 01/30/17 09:58 18 01/30/17 08:00 95.8 73 20 100/68 (79) 98 01/30/17 04:00 97.0 89 18 121/62 (81) 95 01/30/17 00:13 97.8 79 17 114/63 (80) 97 01/29/17 23:45 64 9 99/60 (73) 98 Room Air 01/29/17 23:30 63 10 105/60 (75) 100 Nasal Cannula 4 01/29/17 23:15 63 11 115/65 (82) 100 Nasal Cannula 4 01/29/17 23:00 63 9 119/68 (85) 100 Nasal Cannula 4 01/29/17 22:45 98.0 64 11 123/77 (92) 100 Nasal Cannula 4 01/29/17 19:50 97.1 70 16 105/66 (79) 98 01/29/17 17:58 16 01/29/17 15:35 16 01/29/17 14:55 96.4 83 16 102/55 (71) 98 01/29/17 14:10 97.8 76 17 118/77 (91) 99 01/29/17 12:16 17 I/O 01/29/17 01/29/17 01/29/17 01/30/17 01/30/17 01/30/17 07:00 15:00 23:00 07:00 15:00 23:00 Intake Total 750 ml 820 ml 100 ml Output Total 50 ml Balance 700 ml 820 ml 100 ml Intake Oral 0 ml 720 ml IV Total 100 ml 100 ml Other 750 ml Output Estimated Blood Loss 50 ml # Voids 1 1 Result Diagram: 01/30/17 0548 01/29/17 0750 Imaging Last Impressions Tibia/Fibula X-Ray 01/29/17 0752 Signed Impressions: Service Date/Time: Sunday, January 29, 2017 08:33 - CONCLUSION: Bimalleolar fracture. Arpan Frost MD Ankle X-Ray 01/29/17 0752 Signed Impressions: Service Date/Time: Sunday, January 29, 2017 08:34 - CONCLUSION: Bimalleolar fracture with regional soft tissue swelling. Arpan Frost MD Objective Remarks GENERAL: This is a well-nourished, well-developed patient, in no apparent distress. NECK: Trachea midline. CARDIOVASCULAR: Regular rate and rhythm without murmurs RESPIRATORY: Clear to auscultation. Breath sounds equal bilaterally. No wheezes GASTROINTESTINAL: Abdomen soft, non-tender, nondistended. MUSCULOSKELETAL: Right lower extremity in splint/dressing in place. able to wiggle her toes, sensation intact, <2sec cap refill. NEUROLOGICAL: Awake and alert. Motor and sensory grossly within normal limits. Speech was clear and fluent. A/P Problem List: (1) Bimalleolar fracture of right ankle ICD Code: S82.841A - Displaced bimalleolar fracture of right lower leg, initial encounter for closed fracture Status: Acute Assessment and Plan Mrs. Zapata 41 years old, with no significant medical history. Bimalleolar fracture of the right ankle -s/p ORIF R bimalleolar ankle fracture POD#1 -Orthopedic sx has cleared pt for discharge today. PT to evaluate the patient today prior discharge. Splint to RLE. Continue NWB RLE. Elevate and ice PT for mobilization ortho has switched pain meds to percocet. Discharge Planning discharge later today condition: stable f/u w ortho in 2 weeks. NWB RLE. Elevate and ice Problem Qualifiers (1) Bimalleolar fracture of right ankle: Qualified Codes: S82.841A - Displaced bimalleolar fracture of right lower leg, initial encounter for closed fracture Linette Bcaon MD Jan 30, 2017 12:12
[2017-01-30] MEDS ORDERED: SENN1TAB PO (12:14)
--- NOTE | 2017-02-05 10:51 | MP ---
cc: DEVAN STOVALL MD DATE OF SURGERY: 01/29/2017 PREOPERATIVE DIAGNOSIS Closed right bimalleolar ankle fracture. POSTOPERATIVE DIAGNOSIS Closed right bimalleolar ankle fracture. PROCEDURE Open reduction, internal fixation of right bimalleolar ankle fracture. SURGEON Devan Stovall MD ANESTHESIA General. COMPLICATIONS None. SPECIMEN None. ESTIMATED BLOOD LOSS Approximately 50 cc. INDICATIONS FOR PROCEDURE The patient is a 41-year-old female who presented to the emergency department after a slip and fall while walking her dog. The patient reported initial onset of right lower extremity pain. The patient denied any head injury or other extremity pain. The risks, benefits and alternatives of operative management were discussed with the patient. The risks include but are not limited to risk of infection, malunion, nonunion, hardware malposition or failure, damage to neurovascular structures and possible failure of surgery were all discussed with the patient. She did want to proceed with the above-mentioned surgery. DESCRIPTION OF PROCEDURE The patient was taken back to the operating room and placed supine on the operating room table. General anesthesia then ensued. The patient was prepped and draped in standard sterile fashion. A timeout was performed to identify the correct patient, side, site and procedure to be performed. Preoperative antibiotics were administered. We then turned our attention to the lateral malleolus. An incision over the lateral aspect of the ankle was made. Sharp dissection down to the fracture site was performed. The fracture was reduced with the use of clamps and a lag screw was placed. A lateral plate was then placed over the distal fibula and a combination of locking and non-locking screws were placed. At that time we turned our attention to the medial malleolus. A small incision was made over the anteromedial aspect of the ankle to allow access to the medial malleolus and the medial joint line. The medial malleolus was reduced and two K-wires were then placed from distal to proximal in direction to allow for cannulated screw placement. When these were in an acceptable position and the fracture was reduced under fluoroscopy, a small incision was made at both entry points of the wires. The wires were then measured and the near cortex drilled. Partially threaded cannulated screws were then placed over both guidewires. Again, the fracture was found to be in acceptable position. The guidewires were then removed. The incisions were copiously irrigated with saline. Both the lateral and medial incisions were then closed with interrupted Vicryl sutures and nylon. The patient was then placed into a splint with sterile dressings underneath. The patient was then awoken from general anesthesia without complication. DISPOSITION The patient was instructed to remain non-weightbearing to the right lower extremity. The patient should follow-up in approximately two weeks' time. MD PARISH Levy/SHANIKA /10:23 AM /11:42 AM
== END 2017-01-30 15:45 | disposition home or self-care (01) | DRG 494 ==
LOC: NEPC 07:13 → NEDA 10:22 → N06B 15:20
PROVIDERS: ADMIT Hospitalist; ATTEND Hospitalist
PROC: 0QSG04Z Reposition Right Tibia with Internal Fixation Device, Open Approach (ICD-10-PCS; principal; 2017-01-29 20:25)
DX: S82.841A Displaced bimalleolar fracture of right lower leg, initial encounter for closed fracture (principal); Z80.3 Family history of malignant neoplasm of breast; W01.0XXA Fall on same level from slipping, tripping and stumbling without subsequent striking against object, initial encounter; Y93.K1 Activity, walking an animal; Y92.89 Other specified places as the place of occurrence of the external cause
CPT/HCPCS: 73590; 73600; 76000; 80048; 85025; 85610; 85730; 96374; 96375; 96376; C1713; J0131; J0690; J1170; J1580; J2175; J2370; J2405; J2710; J3010; J7030